=== PATIENT | female | born 1945 | race Caucasian/White ===

== ENCOUNTER 2022-06-28 13:17 | Emergency (ER) | payer BC, SELFPAY ==
[2022-06-28] VITALS (45 sets, daily range): BP systolic 134–217; BP diastolic 59–174; PULSE 55–84; RESP 10–24; TEMP 36.5; O2SAT 87–99
--- NOTE | 2022-06-28 13:15 | DI.RAD_ITS ---
Exam(s) XR CHEST 1V IN DI DEPT EXAM: XR CHEST 1V IN DI DEPT CLINICAL HISTORY: Fall TECHNIQUE: 2D digital imaging was performed. COMPARISON: No exams were available for comparison FINDINGS: LUNGS: Grossly clear. No pleural abnormality seen. HEART: Mildly enlarged AORTA: Normal diameter. BONES: Right humeral head dislocated inferiorly with respect to the dens glenoid with adjacent fractu re fragments. Soft tissues: Unremarkable. IMPRESSION: No acute pulmonary findings. Right shoulder fracture dislocation. DATA REPOSITORY: RADIATION DOSE DELIVERED:
--- NOTE | 2022-06-28 13:15 | DI.RAD_ITS ---
Exam(s) XR SHOULDER RT COMPLETE 2+V EXAM: XR SHOULDER RT COMPLETE 2+V CLINICAL HISTORY: Fall, R/O Fracture. TECHNIQUE: 2D digital imaging was performed. Five views. COMPARISON: No exams were available for comparison FINDINGS: There is an anterior dislocation of the humeral head with respect to the glenoid. The humeral head a ppears impacted on the inferior rim of the glenoid. There are comminuted fragments, the largest appe ars to arise from the humeral head which is displaced several centimeters. The glenoid is partially obscured by the humeral head. No gross glenoid fracture is seen. The clavicle and AC joint appear i ntact. IMPRESSION: Fracture dislocation of the right shoulder. DATA REPOSITORY: RADIATION DOSE DELIVERED:
--- NOTE | 2022-06-28 13:27 | ED.GENADUL_ITS ---
Discharge Plan Disposition Patient Disposition: Home Condition: Stable Discharge Details Clinical Impression: Closed fracture dislocation of right shoulder Primary Care Provider: Laura Raines ED Provider: Gary Resendiz Home Meds and New Rx's Prescriptions: New oxycodone-acetaminophen [Percocet] 5-325 mg tablet 1 tab PO Q8H PRNQty: 8 0RF Continued aspirin,buffd-calcium carb-mag 325 MG tablet 325 mg PO calcium carbonate [Tums] 200 MG tablet,chewable 200 mg PO folic acid 1 MG tablet 1 mg PO DAILY hydrochlorothiazide 25 MG tablet 25 mg PO DAILY [id number]-FA-herbal cmplx#190 [Vitamin D3 Complete] 1 EACH tablet 1 ea PO Discharge Instructions Instructions: Shoulder Dislocation (ED), Scapular Fracture (ED), Closed Reduction (ED) Additional Instructions: The shoulder reduction was successful and the dislocation has resolved; however, there is a fracture. Wear the sling until you are reevaluated with orthopedics. Their office will be calling you Thursday to set this up. Rest, elevate, cool compresses every 2 hours for 20 minutes. Zofran and Percocet as directed. Percocet may cause drowsiness and/or constipation, you may want to consider taking a stool softener while on this medication. Please watch for new or worsening symptoms and return to the ER for any concerns. You are not waiting for the CT results today, orthopedics will discuss these with you when you follow-up as an outpatient. Stand Alone Forms: Work Release Referrals: Fawad Metcalf MD [ [facility] STAFF PHYSICIAN] - Discharge Data Discharge Date/Time-TO BE ENTERED AT DEPARTURE: 06/28/22 18:20 Medical Decision Making <Adele Cabrera NP - Last Filed: 07/01/22 08:08> 76-year-old female presents to the ER via EMS with a chief complaint of mechanical slip and fall while outside in her driveway. EMS reports that downtime was approximately 20 minutes. This occurred around noon. Patient reports that she landed on her right side denies hitting her head no loss of consciousness. She denies any neck pain, chest pain, shortness of breath or headache. She is complaining of right shoulder pain right arm pain. She was given 20 mg of ketamine over approximately 10 minutes prior to arrival by EMS for pain. CBC, CMP, right shoulder and humerus x-ray ordered. Chest x-ray ordered. No evidence for head injury CT deferred at this time. We will continue to monitor patient. Morphine and Zofran ordered. 1428: Spoke with Dr. Metcalf with Ortho, he was able to personally view the Xrays, he recommends Reduction and post- Xrays and if unsure regarding fracture fragment, to obtain CT. Patient given 1 mg of Dilaudid IV, 10 mils of 1% lidocaine for intra-articular hematoma block given please see my procedure note. 1518: Dr. Workman at bedside at my request to assist with reduction of shoulder, patient reports that she is able to move her shoulder somewhat better, postreduction x-ray ordered. However questionable whether patient shoulder is reduced. Patient did tolerate well. I did discuss possible need for sedation for reduction patient verbalizes understanding. Patient's family is at bedside. Care is to be handed off to oncoming provider LIBORIO Cooper pending probable conscious sedation and shoulder reduction and additional imaging. Discussed patient case in details with him he verbalized understanding. 1530: Gary Resendiz PA-C I assumed care of this 76-year-old female from my colleague CALVIN Cabrera, please see her initial HPI and examination. Upon evaluation patient reports mild pain but overall feels much better from her initial presentation. She is agreeable to allowing me to try reduction without sedation. I attempted adduction, supination, external rotation without success. Plan is to perform conscious sedation and attempt once again. Neuro, vascular, tendon intact. Conscious sedation was performed by Dr. Workman, please see his note. What felt like a successful reduction, obtaining postreduction films. Please see official x-ray report below. Case was discussed with orthopedics, Dr. Metcalf. He is able to personally review the x-ray. Would like a right shoulder CT without contrast and then the patient can be discharged with a sling. She does not need to wait for the results of the CT as it will not change disposition here in the ER. He will have his office contact her on Thursday and set her up for an outpatient appointment to discuss the CT results in the next week. Patient will be sent home with a take- home pack of Percocet and Zofran. Patient was observed status post conscious sedation chills she was at baseline, awake, alert, ambulating without difficulty. Both patient and family are comfortable going home in her current condition. Patient had CT imaging without difficulty. Standard discharge and return precautions were provided. Patient understands, is agreeable to this plan, and has no additional questions or concerns upon discharge. This documentation was generated using [employer] system, please disregard any oddities of phrase or misspellings. <LIBORIO Ang - Last Filed: 06/28/22 17:40> CBC, CMP, right shoulder and humerus x-ray ordered. Chest x-ray ordered. No evidence for head injury CT deferred at this time. We will continue to monitor patient. Morphine and Zofran ordered. 1428: Spoke with Dr. Metcalf with Ortho, he was able to personally view the Xrays, he recommends Reduction and post- Xrays and if unsure regarding fracture fragment, to obtain CT. Patient given 1 mg of Dilaudid IV, 10 mils of 1% lidocaine for intra-articular hematoma block given please see my procedure note. 1518: Dr. Workman at bedside at my request to assist with reduction of shoulder, patient reports that she is able to move her shoulder somewhat better, postreduction x-ray ordered. However questionable whether patient shoulder is reduced. Patient did tolerate well. I did discuss possible need for sedation for reduction patient verbalizes understanding. Patient's family is at bedside. 1530: Gary Resendiz PA-C I assumed care of this 76-year-old female from my colleague CALVIN Cabrera, please see her initial HPI and examination. Upon evaluation patient reports mild pain but overall feels much better from her initial presentation. She is agreeable to allowing me to try reduction without sedation. I attempted adduction, supination, external rotation without success. Plan is to perform conscious sedation and attempt once again. Neuro, vascular, tendon intact. Conscious sedation was performed by Dr. Workman, please see his note. What felt like a successful reduction, obtaining postreduction films. Please see official x-ray report below. Case was discussed with orthopedics, Dr. Metcalf. He is able to personally review the x-ray. Would like a right shoulder CT without contrast and then the patient can be discharged with a sling. She does not need to wait for the results of the CT as it will not change disposition here in the ER. He will have his office contact her on Thursday and set her up for an outpatient appointment to discuss the CT results in the next week. Patient will be sent home with a take- home pack of Percocet and Zofran. Patient was observed status post conscious sedation chills she was at baseline, awake, alert, ambulating without difficulty. Both patient and family are comfortable going home in her current condition. Patient had CT imaging without difficulty. Standard discharge and return precautions were provided. Patient understands, is agreeable to this plan, and has no additional questions or concerns upon discharge. This documentation was generated using [employer] system, please disregard any oddities of phrase or misspellings. Medical Records Medical records reviewed: Yes I reviewed the patient's medical records. Imaging Data Radiologic Study: Attestation: I personally reviewed and interpreted this imaging study as follows: Imaging: X-Ray Radiologist's impression: PROCEDURE INFORMATION: Exam: XR Right Shoulder Exam date and time: 06/28/2022 4:56 PM Age: 76 years old Clinical indication: Screening exam; Post-reduction TECHNIQUE: Imaging protocol: Radiologic exam of the Right shoulder. Views: 2 or more views. COMPARISON: XR SHOULDER RT 1V 06/28/2022 3:41 PM FINDINGS: Bones/joints: Previous anterior dislocation right shoulder has been reduced. Alignment anatomic. Fracture greater tuberosity humeral head. Several calcifications noted along the inferior margin of the glenoid, possibly displaced fracture fragments versus bony Bankart lesion. Soft tissues: Normal. IMPRESSION: Previous anterior dislocation right shoulder has been reduced. Alignment anatomic. Fracture greater tuberosity humeral head. Several calcifications noted along the inferior margin of the glenoid, possibly dis placed fracture fragments versus bony Bankart lesion. Lab Data Lab results reviewed: Yes I reviewed the patient's lab results. Labs: Laboratory Tests Range/Units 06/28/22 06/28/22 15:35 15:35 WBC (4.4-10.8) 10^3/uL 14.86 H RBC (3.93-5.22) 10^6/uL 4.85 Hgb (11.2-15.7) g/dL 14.4 Hct (36.0-46.0) % 43.7 MCV (80-95) fL 90 MCH (27.0-33.0) pg 29.7 MCHC (32.0-36.0) % 33.0 RDW (11.7-14.6) % 12.3 Plt Count (130-400) 10^3/uL 205 MPV (8.0-11.0) fL 9.3 Immature Gran % 0.3 Neutrophils % 82.9 Lymphocytes % 11.1 Monocytes % 5.1 Eosinophils % 0.2 Basophils % 0.4 Nucleated RBC % (0.0-0.3) % 0.0 Absolute Neutrophils (1.2-6.7) 10^3/uL 12.32 H Absolute Lymphocytes (1.2-3.4) 10^3/uL 1.65 Absolute Monocytes (0.1-0.8) 10^3/uL 0.76 Absolute Eosinophils (0.0-0.7) 10^3/uL 0.03 Absolute Basophils (0.0-0.2) 10^3/uL 0.06 Sodium (136-145) mmol/L 137 Potassium (3.5-5.1) mmol/L 3.4 L Chloride (98-107) mmol/L 101 Carbon Dioxide (21.0-32.0) mmol/L 27.9 Anion Gap (3-11) mmol/L 8.1 BUN (7-18) mg/dL 15 Creatinine (0.55-1.02) mg/dL 0.9 Est GFR (CKD-EPI 2020) (mL/min/1.73m2) 65.84 Glucose (74-106) mg/dL 160 H Calcium (8.5-10.1) mg/dL 9.2 Total Bilirubin (0.2-1.0) mg/dL 0.5 AST (15-37) U/L 28 ALT (14-59) U/L 26 Alkaline Phosphatase (46-116) U/L 79 Total Protein (6.4-8.2) g/dL 7.1 Albumin (3.4-5.0) g/dL 4.0 HPI <Adele Cabrera NP - Last Filed: 07/01/22 08:08> General Mode of arrival: EMS . Date/Time Provider Initiated Documentation: 06/28/22 14:23 . Limitations to Documentation: no limitations . Information obtained by: patient and EMS . HPI Narrative: 76-year-old female presents to the ER via EMS with a chief complaint of mechanical slip and fall while outside in her driveway. EMS reports that downtime was approximately 20 minutes. This occurred around noon. Patient reports that she landed on her right side denies hitting her head no loss of consciousness. She denies any neck pain, chest pain, shortness of breath or headache. She is complaining of right shoulder pain right arm pain. She was given 20 mg of ketamine over approximately 10 minutes prior to arrival by EMS for pain. Patient has a past medical history of a cardiac ablation, she does take low-dose aspirin daily and hydrochlorothiazide. Related Data Home Medications Medication Instructions Recorded Confirmed Tums 200 mg calcium (500 mg) 200 mg PO 04/11/16 chewable tablet (calcium carbonate) Vitamin D3 Complete 18 mg iron-800 1 ea PO 04/11/16 mcg-150 mg tablet ([id number]-qc-nfrd-FA-herbal cmplx#190) aspirin,buffered (calcium 325 mg PO 04/11/16 carbonate-magnesium) 325 mg tablet folic acid 1 mg tablet 1 mg PO DAILY 04/11/16 hydrochlorothiazide 25 mg tablet 25 mg PO DAILY 04/11/16 oxycodone-acetaminophen 5 mg-325 1 tab PO Q8H PRN #8 tabs 06/28/22 mg tablet (Percocet) Previous Rx's Medication Instructions Recorded oxycodone-acetaminophen 5 mg-325 1 tab PO Q8H PRN #8 tabs 06/28/22 mg tablet (Percocet) Allergies Allergy/AdvReac Type Severity Reaction Status Date / Time Beta-Blockers Allergy Unverified 06/28/22 13:38 (Beta-Adrenergic Bloc ibuprofen [From Motrin] Allergy Unverified 06/28/22 13:38 Review of Systems <Adele Cabrera NP - Last Filed: 07/01/22 08:08> All systems reviewed & are unremarkable except as noted in HPI and below Musculoskeletal Musculoskeletal: Reports as per HPI, Reports arthralgias and Reports joint swelling PFSH <Adele Cabrera NP - Last Filed: 07/01/22 08:08> All Active Problems (Updated 06/28/22 @ 17:35 by LIBORIO Ang) Closed fracture dislocation of right shoulder (Acute) Social History Smoking/Tobacco Use Status: Never Smoking risk assessment performed?: Yes Do you feel safe at home: Yes Do you feel safe in your relationship?: Yes Exam <Adele Cabrera NP - Last Filed: 07/01/22 08:08> Narrative Exam Narrative: General: Well Developed, Awake and Alert, conversant. Skin: Warm and Dry HEENT: Head: No palpable deformities, Normocephalic Eyes: Pupils PERRLA, EOM's intact. No periorbital eccymosis or step off Ears: Canal patent. Tympanic membranes are clear . No piedra's sign, no hemptympanum. Nose/Face: Atraumatic. Facial bones nontender to palpation and stable with manipulation. Mouth/Throat: No intraoral trauma. Teeth and mandible are intact. Neck: No midline tenderness, no step off, no deformity to palpation of C-spine. Trachea midline. Chest: No surface trauma. Nontender without crepitus or deformity. Lungs clear to ausculatation bilaterally. Heart: RRR, no rubs, murmurs or gallop. Abdomen: No abrasions, ecchymosis, or surface trauma. Nondistended. Nontender to palpation no guarding, rebound, or rigidity. Pelvis: Nontender to palpation and stable to compression. Femoral pulses strong and equal Extremities: no surface trauma. Sensation intact. Peripheral pulses intact and equal. She is complaining of some proximal right humerus tenderness and right shoulder pain. Neuro: ANO x4, GCS 15, cranial nerves II through XII intact. Motor and sensory exam nonfocal. Reflexes are symmetric. Procedures <Adele Cabrera NP - Last Filed: 07/01/22 08:08> Nerve Block Nerve Block 1: Time out performed: Yes Local Anesthetic: Lidocaine 1% Amount of anesthesia used (mL): 10 Side: right Nerve Blocks: hematoma block (Right shoulder intra articular) Patient Tolerated Procedure: well Complications: none Orthopedic Fracture Reduction Fracture #1: Time Out Performed: Yes Side: right Fracture Reduction Location: humerus Analgesia: hematoma block Technique: direct manipulation and traction/counter-traction Post Reduction X-rays Demonstrate: other (Unsuccessful reduction) Post-reduction neuro exam: no change Post-reduction vascular exam: intact Splint Applied: No Patient Tolerated Procedure: well <LIBORIO Ang - Last Filed: 06/28/22 17:40> Orthopedic Joint Reduction Joint #1: Time Out Performed: Yes Side: right Joint Reduction Location: shoulder Analgesia: procedural sedation Shoulder Technique Used (if applicable): traction/counter-traction (With internal rotation) Post-reduction neuro exam: intact and no change Post-reduction vascular: intact and no change Post Reduction X-Ray Obtained: Yes Post Reduction X-Ray Results: reduced Splint Applied: Yes (Sling) <Luciano Workman MD - Last Filed: 06/28/22 17:48> Procedural Sedation Indication: fracture/dislocation reduction ASA Class: I Preparation: director of cardiac cath lab applied, pulse oximeter, capnometry used and supplemental O2 applied IV Propofol dose (mg): 75 Patient Tolerated Procedure: well Complications: none Sign Out <Adele Cabrera NP - Last Filed: 07/01/22 08:08> Sign Out Data: Sign Out Comment: Fall, Right Anterior dislocation with Greater tuberosity fracture Right shoulder. Intra-articular Lidocaine 10 ml given. Patient has had a total of 4 mg morphine IV and 1 mg of hydromorphone IV. Pending postreduction x-ray, reconsult with Dr. Metcalf with Ortho and possible procedural sedation. Dr. Workman is involved in her care. Last updated by Adele Cabrera NP at 06/28/22 15:44
[2022-06-28] MEDS: MORPHine 4 MG/ML SYR IVP (13:39)
[2022-06-28] MEDS: Ondansetron 4 MG/2 ML VIAL IVP ×2 (13:39→16:05)
--- NOTE | 2022-06-28 14:38 | DI.VRAD_ITS ---
PROCEDURE INFORMATION: Exam: XR Chest Exam date and time: 06/28/2022 2:09 PM Age: 76 years old Clinical indication: Injury or trauma; Fall; Other: R/O FX TECHNIQUE: Imaging protocol: Radiologic exam of the chest. Views: 1 view. COMPARISON: No relevant prior studies available. FINDINGS: Lungs: Mild airspace disease and/or atelectasis right base. Lungs otherwise clear. Pleural spaces: Unremarkable. No pleural effusion. No pneumothorax. Heart/Mediastinum: Unremarkable. No cardiomegaly. Bones/joints: Anterior dislocation right shoulder, with associated fracture greater tuberosity humeral head. IMPRESSION: 1. Anterior dislocation right shoulder, with associated fracture greater tuberosity humeral head. 2. Mild airspace disease and/or atelectasis right base. Dictated and Authenticated by: Hao Wei MD. Ordering:REINA Angulo MD
--- NOTE | 2022-06-28 14:41 | DI.VRAD_ITS ---
PROCEDURE INFORMATION: Exam: XR Right Shoulder Exam date and time: 06/28/2022 2:10 PM Age: 76 years old Clinical indication: Injury or trauma; Fall; Other: R/O FX; Injury date: 06/28/22 TECHNIQUE: Imaging protocol: Radiologic exam of the Right shoulder. Views: 2 or more views. COMPARISON: CR XR CHEST 1V IN DI DEPT 06/28/2022 2:09 PM FINDINGS: Bones/joints: Anterior dislocation right shoulder, with associated fracture greater tuberosity humeral head. Soft tissues: Normal. IMPRESSION: Anterior dislocation right shoulder, with associated fracture greater tuberosity humeral head. Dictated and Authenticated by: Hao Wei MD. Ordering:REINA Angulo MD
[2022-06-28] MEDS: HYDROmorphone 2 MG/ML SYR 1 MG IVP (14:50)
--- NOTE | 2022-06-28 15:15 | DI.RAD_ITS ---
Exam(s) XR SHOULDER RT 1V EXAM: XR SHOULDER RT 1V CLINICAL HISTORY: Post reduction. TECHNIQUE: 2D digital imaging was performed. One views. COMPARISON: CR,XR XR SHOULDER RT COMPLETE 2+V from 06/28/2022 CR,XR XR SHOULDER RT COMPLETE 2+V from 06/28/2022 FINDINGS: There has been no change in the alignment of the anterior cyst shoulder dislocation. Bony fragment i s again noted lateral to the glenoid. DATA REPOSITORY: RADIATION DOSE DELIVERED:
[2022-06-28 15:43] LABS: Abs Immature Grans 0.05 10^3/uL (0.0-0.06); Absolute Basophil Count 0.06 10^3/uL (0.0-0.2); Absolute Eosinophil Count 0.03 10^3/uL (0.0-0.7); Absolute Lymphocyte Count 1.65 10^3/uL (1.2-3.4); Absolute Monocyte Count 0.76 10^3/uL (0.1-0.8); Basophils % 0.4; Eosinophils % 0.2; HCT 43.7 % (36.0-46.0); HGB 14.4 g/dL (11.2-15.7); Immature Grans % 0.3; Lymphocytes % 11.1; MCH 29.7 pg (27.0-33.0); MCV 90 fL (80-95); MPV 9.3 fL (8.0-11.0); Monocytes % 5.1; Neutrophils % 82.9; Platelet Count 205 10^3/uL (130-400); RBC 4.85 10^6/uL (3.93-5.22); RDW 12.3 % (11.7-14.6); RDW-SD 40.8 fL; WBC 14.86 10^3/uL (4.4-10.8)
[2022-06-28 15:50] LABS: Absolute Neutrophil Count 12.32 10^3/uL (1.2-6.7)
[2022-06-28 15:59] LABS: AST 28 U/L (15-37); Alkaline Phosphatase 79 U/L (46-116); Anion Gap 8.1 mmol/L (3-11); BUN 15 mg/dL (7-18); Bilirubin, Total 0.5 mg/dL (0.2-1.0); CO2 27.9 mmol/L (21.0-32.0); CREATININE 0.9 mg/dL (0.55-1.02); Calcium 9.2 mg/dL (8.5-10.1); Chloride 101 mmol/L (98-107); Estimated GFR 65.84 (mL/min/1.73m2); Glucose 160 mg/dL (74-106); Potassium 3.4 mmol/L (3.5-5.1); Sodium 137 mmol/L (136-145); Total Protein 7.1 g/dL (6.4-8.2)
--- NOTE | 2022-06-28 15:59 | DI.VRAD_ITS ---
PROCEDURE INFORMATION: Exam: XR Right Shoulder Exam date and time: 06/28/2022 3:41 PM Age: 76 years old Clinical indication: Screening exam; Post-red; Patient HX: Post reduction TECHNIQUE: Imaging protocol: Radiologic exam of the Right shoulder. Views: 2 or more views. COMPARISON: CR XR SHOULDER RT COMPLETE 2+V 06/28/2022 2:10 PM FINDINGS: Bones/joints: Persistent anterior dislocation right shoulder. Similar alignment at the fracture greater tuberosity humeral head. Soft tissues: Normal. IMPRESSION: Persistent anterior dislocation right shoulder. Similar alignment at the fracture greater tuberosity humeral head. Dictated and Authenticated by: Hao Wei MD. Ordering:REINA Angulo MD
[2022-06-28 16:12] LABS: ALT 26 U/L (14-59)
--- NOTE | 2022-06-28 16:15 | DI.RAD_ITS ---
Exam(s) XR SHOULDER RT COMPLETE 2+V EXAM: XR SHOULDER RT COMPLETE 2+V CLINICAL HISTORY: post reduction. TECHNIQUE: 2D digital imaging was performed. Three views. COMPARISON: CR,XR XR SHOULDER RT 1V from 06/28/2022 FINDINGS: The previously noted shoulder dislocation has been reduced. The alignment of the glenohumeral joint is now anatomic. Multiple bony fragments are noted adjacent to the humeral head laterally as well as at the inferior aspect of the glenoid. Degenerative changes are seen at the AC joint and undersurfa ce of the acromion. IMPRESSION: Interval reduction of previously noted glenohumeral joint dislocation. DATA REPOSITORY: RADIATION DOSE DELIVERED:
[2022-06-28] MEDS: Propofol 200 MG/20 ML VIAL 70 MG IVP (16:43)
--- NOTE | 2022-06-28 17:00 | DI.CT_ITS ---
Exam(s) CT UPPER EXTREMITY RT WO EXAM: CT UPPER EXTREMITY RT WO CLINICAL HISTORY: Fracture-dislocation, Korsh protocol please TECHNIQUE: Imaging Protocol: Axial computed tomography images with coronal and sagittal reformatted images were created and reviewed. CONTRAST MATERIAL: Noncontrast COMPARISON: CR,XR XR CHEST 1V IN DI DEPT from 06/28/2022 CR,XR XR SHOULDER RT COMPLETE 2+V from 06/28/2022 FINDINGS: Bones: Hill-Sachs deformity of the humeral head with multiple adjacent small fracture fragments. An additional fracture is seen at the inferior rim of the glenoid. The humeral head appears normally al igned with the glenoid. The AC joint is unremarkable. Soft Tissues: No pneumothorax. Visualized portions of the right lung clear. Supraspinatus muscle a trophy. Soft tissue swelling inferior to glenoid. IMPRESSION: Status post reduction of anterior dislocation with fracture fragments adjacent to the humeral head w ell as a fracture from the inferior rim of the glenoid. RADIATION DOSE DELIVERED: 373.35mGy.cm Total DLP DATA REPOSITORY: All CT scans at this facility are submitted to the National Radiology Data Registry (NRDR) Dose Index Registry (DIR) with the [employer] ([employer]). RADIATION OPTIMIZATION: All CT scans at this facility use at least one of these dose optimization te chniques: automated exposure control; mA and/or kV adjustment per patient size (includes targeted exa ms where dose is matched to clinical indication); or iterative reconstruction.
--- NOTE | 2022-06-28 17:06 | DI.VRAD_ITS ---
PROCEDURE INFORMATION: Exam: XR Right Shoulder Exam date and time: 06/28/2022 4:56 PM Age: 76 years old Clinical indication: Screening exam; Post-reduction TECHNIQUE: Imaging protocol: Radiologic exam of the Right shoulder. Views: 2 or more views. COMPARISON: XR SHOULDER RT 1V 06/28/2022 3:41 PM FINDINGS: Bones/joints: Previous anterior dislocation right shoulder has been reduced. Alignment anatomic. Fracture greater tuberosity humeral head. Several calcifications noted along the inferior margin of the glenoid, possibly displaced fracture fragments versus bony Bankart lesion. Soft tissues: Normal. IMPRESSION: Previous anterior dislocation right shoulder has been reduced. Alignment anatomic. Fracture greater tuberosity humeral head. Several calcifications noted along the inferior margin of the glenoid, possibly displaced fracture fragments versus bony Bankart lesion. Dictated and Authenticated by: Hao Wei MD. Ordering:GOLDY Vega MD
[2022-06-28] MEDS: Ondansetron O.D.T. 4 MG TABEF, 3 TABS/BTL PO (17:34)
--- NOTE | 2022-06-28 17:52 | DI.VRAD_ITS ---
PROCEDURE INFORMATION: Exam: CT Right Upper Extremity Without Contrast, Shoulder Exam date and time: 06/28/2022 5:26 PM Age: 76 years old Clinical indication: Injury or trauma; Fall; Blunt trauma (contusions or hematomas); Shoulder; Right TECHNIQUE: Imaging protocol: Computed tomography of the Right upper extremity without contrast. Exam focused on the shoulder. COMPARISON: CR XR SHOULDER RT COMPLETE 2+V 06/28/2022 4:56 PM FINDINGS: Bones/joints: Comminuted fracture humeral head at the greater tuberosity. Fracture inferior rim of the glenoid. Alignment at the glenohumeral joint anatomic. No dislocation. Soft tissues: Soft tissue hematoma right axillary region adjacent to the glenoid. IMPRESSION: Comminuted fracture humeral head at the greater tuberosity. Fracture inferior rim of the glenoid. Dictated and Authenticated by: Hao Wei MD. Ordering:GOLDY Vega MD
== END 2022-06-28 18:20 | disposition home or self-care (01) ==
PROVIDERS: Registered Nurse Emergency; Emergency Provider Physician Assistant; PCP Nurse Practitioner
DX: S42.301A Unspecified fracture of shaft of humerus, right arm, initial encounter for closed fracture (principal); W01.0XXA Fall on same level from slipping, tripping and stumbling without subsequent striking against object, initial encounter; Y92.410 Unspecified street and highway as the place of occurrence of the external cause
CPT/HCPCS: 36415; 80053; 96372; 96374; 96375; 99284; 71045; 73020; 73030; 73200; 85025; J1170; J2270; J2405; J2704

== ENCOUNTER 2022-07-22 14:50 | Outpatient (CLI) | payer BC, SELFPAY ==
--- NOTE | 2022-07-22 14:30 | DI.RAD_ITS ---
Exam(s) XR SHOULDER RT COMPLETE 2+V EXAM: XR SHOULDER RT COMPLETE 2+V CLINICAL HISTORY: RIGHT SHOULDER F/U. TECHNIQUE: 2D digital imaging was performed of the right shoulder. Three images were obtained. AP and Y views were obtained. COMPARISON: CR,XR XR SHOULDER RT COMPLETE 2+V from 06/28/2022 FINDINGS: BONES: There has been no change in alignment of the fractures involving the inferior glenoid or the h umeral head. No bony destructive lesion is seen. JOINTS: No dislocation present. Degenerative changes are seen at the acromioclavicular joint. SOFT TISSUE: Normal. IMPRESSION: Stable proximal humeral and glenoid fractures. DATA REPOSITORY: RADIATION DOSE DELIVERED:
== END 2022-07-22 14:51 | disposition home or self-care (01) ==
LOC: DIORS 14:51
PROVIDERS: PCP Nurse Practitioner; Referring Provider Nurse Practitioner; Visit Provider Student in an Organized Health Care Education/Training Program
DX: M75.101 Unspecified rotator cuff tear or rupture of right shoulder, not specified as traumatic (principal); M12.811 Other specific arthropathies, not elsewhere classified, right shoulder; S42.391D Other fracture of shaft of right humerus, subsequent encounter for fracture with routine healing; X58.XXXD Exposure to other specified factors, subsequent encounter
CPT/HCPCS: 73030

== ENCOUNTER 2022-08-26 15:12 | Outpatient (CLI) | payer BC, SELFPAY ==
--- NOTE | 2022-08-26 14:01 | DI.RAD_ITS ---
Exam(s) XR SHOULDER RT COMPLETE 2+V EXAM: XR SHOULDER RT COMPLETE 2+V CLINICAL HISTORY: right shoulder f/u. TECHNIQUE: 2D digital imaging was performed. COMPARISON: CR XR SHOULDER RT COMPLETE 2+V from 07/22/2022 FINDINGS: 3 views No significant change compared to 07/22 3. Fractures remain unchanged. Triangular calcific density subjacent to the osseous glenoid also unchanged. No new abnormal soft tissue calcifications. IMPRESSION: No radiographic change. DATA REPOSITORY: RADIATION DOSE DELIVERED:
== END 2022-08-26 15:13 | disposition home or self-care (01) ==
LOC: DIORS 15:12
PROVIDERS: PCP Nurse Practitioner; Referring Provider Nurse Practitioner; Visit Provider Student in an Organized Health Care Education/Training Program
DX: S42.391D Other fracture of shaft of right humerus, subsequent encounter for fracture with routine healing (principal); M12.811 Other specific arthropathies, not elsewhere classified, right shoulder; M75.101 Unspecified rotator cuff tear or rupture of right shoulder, not specified as traumatic; X58.XXXD Exposure to other specified factors, subsequent encounter
CPT/HCPCS: 73030

== ENCOUNTER 2022-10-14 14:06 | Outpatient (CLI) | payer BC, SELFPAY ==
--- NOTE | 2022-10-14 13:00 | DI.RAD_ITS ---
Exam(s) XR SHOULDER RT COMPLETE 2+V EXAM: XR SHOULDER RT COMPLETE 2+V CLINICAL HISTORY: f/u fx. TECHNIQUE: 2D digital imaging was performed of the right shoulder. Two images were obtained. AP an d Y views were obtained. COMPARISON: CR XR SHOULDER RT COMPLETE 2+V from 08/26/2022 FINDINGS: BONES: There has been no change and alignment of the fractures involving the humeral head in the infe rior glenoid. No new fractures identified. No bony destructive lesion is seen. JOINTS: No dislocation present. Degenerative changes are seen at the acromioclavicular joint. SOFT TISSUE: Normal. IMPRESSION: Stable fractures involving the right shoulder. DATA REPOSITORY: RADIATION DOSE DELIVERED:
== END 2022-10-14 14:07 | disposition home or self-care (01) ==
LOC: DIORS 14:06
PROVIDERS: PCP Nurse Practitioner; Visit Provider Student in an Organized Health Care Education/Training Program
DX: S42.391D Other fracture of shaft of right humerus, subsequent encounter for fracture with routine healing (principal); X58.XXXD Exposure to other specified factors, subsequent encounter
CPT/HCPCS: 73030